=== PATIENT | female | born 1970 | race African-American/Black ===

== ENCOUNTER 2016-11-07 05:59 | Emergency (ER) | payer OTHER ==
[~2016-11-07] VITALS: Ht 175.3 cm; Wt 155.6 kg
[~2016-11-07 05:59] MED LIST: ACET500T33 PO; DEXL60CA2 PO; HYDR-2762 PO; L.AC1CAP6 PO; OMEP40CA5 PO; TRAM50TA PO
[2016-11-07 06:16] VITALS: BP 172/103
--- NOTE | 2016-11-07 06:18 | PHYS DOC ---
Past Medical History Past Medical History: GERD, Hypertension Past Surgical History: Cholecystectomy Additional Past Surgical Histo: D&C, cervical ablation Alcohol Use: None Drug Use: None Adult General Chief Complaint Chief Complaint: INSECT BITE HPI HPI Patient is a 46 year old female who presents with left lower extremity itchy rash that has become slightly painful. Has 3 areas on left lower leg; started small and have grown. States she mowed recently prior to this developing. She is concerned it is infection. She denies injury or other known exposure. No f/ c, numbness, tingling, weakness, GI complaints, myalgia. Review of Systems Review of Systems Constitutional: Denies fever or chills [] Eyes: Denies change in visual acuity, redness, or eye pain [] HENT: Denies nasal congestion or sore throat [] Respiratory: Denies cough or shortness of breath [] Cardiovascular: No additional information not addressed in HPI [] GI: Denies abdominal pain, nausea, vomiting, bloody stools or diarrhea [] : Denies dysuria or hematuria [] Musculoskeletal: Denies back pain or joint pain [] Integument: Has rash [] Neurologic: Denies headache, focal weakness or sensory changes [] Endocrine: Denies polyuria or polydipsia [] Allergies Allergies Allergies Coded Allergies Type Severity Reaction Last Updated Verified No Known Drug Allergies 05/05/15 No Physical Exam Physical Exam Constitutional: Well developed, well nourished, no acute distress, non-toxic appearance. [] HENT: Normocephalic, atraumatic, bilateral external ears normal, oropharynx moist, nose normal. [] Eyes: PERRLA, EOMI. [] Neck: Normal range of motion, supple. [] Cardiovascular:Heart rate regular rhythm [] Lungs & Thorax: Bilateral breath sounds clear to auscultation [] Abdomen: Bowel sounds normal, soft, no tenderness. [] Skin: Warm, dry. Has 3 areas of firm, raised, red 2cm lesions with tiny central honey crusted discharge; not warm, no crepitance or fluctuance, minimally tender. [] Back: Normal ROM. [] Extremities: No joint tenderness, ROM intact, no edema. [] Neurologic: Alert and oriented X 3, normal motor function, normal sensory function, no focal deficits noted. [] Psychologic: Affect normal, judgement normal, mood normal. [] Current Patient Data Vital Signs Vital Signs Date Time Temp Pulse Resp B/P (MAP) Pulse Ox O2 Delivery O2 Flow Rate FiO2 11/07/16 06:16 97.4 99 18 98 Room Air 97.4 Course & Med Decision Making Course & Med Decision Making Discussed this is likely a reaction from insect bite instead of infection. Discussed supportive care. Return precautions given. She understands and agrees with plan Dragon Disclaimer Dragon Disclaimer This electronic medical record was generated, in whole or in part, using a voice recognition dictation system. Departure Departure Impression: Primary Impression: Bug bite without infection Disposition: HOME, SELF-CARE Condition: STABLE Referrals: ADELINA CONNOLLY MD (PCP) Patient Instructions: Insect Bite, [id number] Additional Instructions: Follow-up with your primary care doctor. Return for any concerns. Problem Qualifiers Primary Impression: Bug bite without infection Encounter type: initial encounter Qualified Codes: W57.XXXA - Bitten or stung by nonvenomous insect and other nonvenomous arthropods, initial encounter Jordyn KNIGHT MD Nov 07, 2016 06:18
== END 2016-11-07 06:35 | disposition home or self-care (01) ==
LOC: ER 05:59
DX: W57.XXXA Bitten or stung by nonvenomous insect and other nonvenomous arthropods, initial encounter (principal); K21.9 Gastro-esophageal reflux disease without esophagitis; I10 Essential (primary) hypertension; Z90.49 Acquired absence of other specified parts of digestive tract; Y93.89 Activity, other specified; Y99.8 Other external cause status; Y92.89 Other specified places as the place of occurrence of the external cause
CPT/HCPCS: 99281

== ENCOUNTER 2017-07-28 19:47 | Emergency (ER) | payer OTHER ==
[2017-07-28] MEDS: HYDROcodone/APAP 10/325 1 TAB TABLET PO ×2 (20:15)
== END 2017-07-28 22:03 | disposition home or self-care (01) ==
LOC: ER 19:47
DX: S39.012A Strain of muscle, fascia and tendon of lower back, initial encounter (principal); K21.9 Gastro-esophageal reflux disease without esophagitis; I10 Essential (primary) hypertension; Z90.49 Acquired absence of other specified parts of digestive tract; X58.XXXA Exposure to other specified factors, initial encounter; Y93.89 Activity, other specified; Y92.89 Other specified places as the place of occurrence of the external cause; Y99.8 Other external cause status
CPT/HCPCS: 72131; 99284-25

== ENCOUNTER → 2017-08-25 | Outpatient (CLI) | payer OTHER | END | disposition home or self-care (01) | LOC: MAMMO 08:34 | DX: Z12.31 Encounter for screening mammogram for malignant neoplasm of breast (principal) | CPT/HCPCS: 77063; 77067 ==

== ENCOUNTER 2018-02-15 15:50 | Emergency (ER) | payer OTHER ==
[~2018-02-15] VITALS: Ht 175.3 cm; Wt 153.3 kg
[~2018-02-15 15:50] MED LIST changes: +CYCL5TAB PO; +HYDR-971 PO
[2018-02-15] MEDS ORDERED: KETOROLAC 30 MG/ML VIAL. IV ONE (16:15)
[2018-02-15] MEDS ORDERED: ONDANSETRON PF 4 MG/2 ML VIAL. IV ONE (16:15)
--- NOTE | 2018-02-15 16:15 | PHYS DOC ---
Past Medical History Past Medical History: GERD, Hypertension Past Surgical History: Cholecystectomy Additional Past Surgical Histo: D&C, cervical ablation Alcohol Use: None Drug Use: None Adult General Chief Complaint Chief Complaint: FLANK PAIN HPI HPI Patient is a 47 year old female who presents with right flank that wraps around to her right lower abdomen, urinary frequency, and foul urine odor x 1 day. Denies fever. Rates sharp pain 8/10. Review of Systems Review of Systems Constitutional: Denies fever or chills [] Eyes: Denies change in visual acuity, redness, or eye pain [] HENT: Denies nasal congestion or sore throat [] Respiratory: Denies cough or shortness of breath [] Cardiovascular: No additional information not addressed in HPI [] GI: Right lower abdominal pain, nausea. Denies vomiting, bloody stools or diarrhea [] : Dysuria. Denies hematuria. Foul smelling urine. [] Musculoskeletal: Denies back pain or joint pain [] Integument: Denies rash or skin lesions [] Neurologic: Denies headache, focal weakness or sensory changes [] All other systems were reviewed and found to be within normal limits, except as documented in this note. Current Medications Current Medications Current Medications Medications (Trade) Dose Ordered Sig/Efren Start Time Stop Time Status Last Admin Dose Admin Ketorolac Tromethamine (Toradol 30mg Vial) 30 mg 1X ONCE 02/15/18 16:15 02/15/18 16:18 DC 02/15/18 16:56 30 MG Ondansetron HCl (Zofran) 4 mg 1X ONCE 02/15/18 16:15 02/15/18 16:18 DC 02/15/18 16:54 4 MG Allergies Allergies Allergies Coded Allergies Type Severity Reaction Last Updated Verified No Known Drug Allergies 02/15/18 No Physical Exam Physical Exam Constitutional: Well developed, well nourished, no acute distress, non-toxic appearance. [] HENT: Normocephalic, atraumatic, bilateral external ears normal, oropharynx moist, no oral exudates, nose normal. [] Eyes: PERRLA, EOMI, conjunctiva normal, no discharge. [] Neck: Normal range of motion, no tenderness, supple, no stridor. [] Cardiovascular:Heart rate regular rhythm, no murmur [] Lungs & Thorax: Bilateral breath sounds clear to auscultation [] Abdomen: Bowel sounds normal, soft, right lower abdomen tenderness, no masses, no pulsatile masses. [] Skin: Warm, dry, no erythema, no rash. [] Back: Right lower tenderness, CVA tenderness. [] Extremities: No tenderness, no cyanosis, no clubbing, ROM intact, no edema. [] Neurologic: Alert and oriented X 3, normal motor function, normal sensory function, no focal deficits noted. [] Psychologic: Affect normal, judgement normal, mood normal. [] Current Patient Data Vital Signs Vital Signs Date Time Temp Pulse Resp B/P (MAP) Pulse Ox O2 Delivery O2 Flow Rate FiO2 02/15/18 15:55 98.1 93 20 168/69 (102) 99 Room Air 98.1 Lab Values Laboratory Tests Test 02/15/18 16:00 02/15/18 16:50 Urine Collection Type Unknown Urine Color Yellow Urine Clarity Cloudy Urine pH 6.5 Urine Specific [place] 1.015 Urine Protein 30 mg/dL (NEG-TRACE) Urine Glucose (UA) Negative mg/dL (NEG) Urine Ketones (Stick) Negative mg/dL (NEG) Urine Blood Large (NEG) Urine Nitrite Negative (NEG) Urine Bilirubin Negative (NEG) Urine Urobilinogen Dipstick 1.0 mg/dL (0.2 mg/dL) Urine Leukocyte Esterase Trace (NEG) Urine RBC Tntc /HPF (0-2) Urine WBC 1-4 /HPF (0-4) Urine Squamous Epithelial Cells Occ /LPF Urine Bacteria Few /HPF (0-FEW) Urine Mucus Slight /LPF White Blood Count 4.0 x10^3/uL (4.0-11.0) Red Blood Count 4.26 x10^6/uL (3.50-5.40) Hemoglobin 13.1 g/dL (12.0-15.5) Hematocrit 39.2 % (36.0-47.0) Mean Corpuscular Volume 92 fL (79-100) Mean Corpuscular Hemoglobin 31 pg (25-35) Mean Corpuscular Hemoglobin Concent 33 g/dL (31-37) Red Cell Distribution Width 14.5 % (11.5-14.5) Platelet Count 166 x10^3/uL (140-400) Neutrophils (%) (Auto) 62 % (31-73) Lymphocytes (%) (Auto) 30 % (24-48) Monocytes (%) (Auto) 6 % (0-9) Eosinophils (%) (Auto) 1 % (0-3) Basophils (%) (Auto) 0 % (0-3) Neutrophils # (Auto) 2.5 x10^3uL (1.8-7.7) Lymphocytes # (Auto) 1.2 x10^3/uL (1.0-4.8) Monocytes # (Auto) 0.3 x10^3/uL (0.0-1.1) Eosinophils # (Auto) 0.1 x10^3/uL (0.0-0.7) Basophils # (Auto) 0.0 x10^3/uL (0.0-0.2) Sodium Level 145 mmol/L (136-145) Potassium Level 4.3 mmol/L (3.5-5.1) Chloride Level 108 mmol/L (98-107) H Carbon Dioxide Level 28 mmol/L (21-32) Anion Gap 9 (6-14) Blood Urea Nitrogen 13 mg/dL (7-20) Creatinine 1.0 mg/dL (0.6-1.0) Estimated GFR (Cockcroft-Gault) 71.9 Glucose Level 99 mg/dL (70-99) Calcium Level 9.2 mg/dL (8.5-10.1) Laboratory Tests 02/15/18 16:50 Laboratory Tests 02/15/18 16:50 EKG EKG [] Radiology/Procedures Radiology/Procedures CT ABD/PELV[] Impressions: [facility] [address] [place] [address] IMAGING REPORT Signed PATIENT: TARAH SORENSON ACCOUNT: [id number] : 1970 LOCATION: ER AGE: 47 SEX: F EXAM STATUS: REG ER ORD. PHYSICIAN: VALERY BALLESTEROS APRN REASON: FLANK PAIN, HX KIDNEY STONE PROCEDURE: CT ABDOMEN PELVIS WO CONTRAST PQRS Compliance statement: One or more of the following individualized dose reduction techniques were utilized for this examination: 1. Automated exposure control. 2. Adjustment of the mA and/or kV according to patient size. 3. Use of iterative reconstruction technique. Indication:RT FLANK PAIN, HEMATURIA, PRIOR SENT TECHNIQUE: CT abdomen and pelvis without IV contrast with multiplanar reformats. COMPARISON: 07/17/2015 FINDINGS: Limited evaluation of solid abdominal and pelvic organs due to lack of IV contrast. Heart is normal in size. No pericardial or pleural effusion. Clear lung bases. Noncontrast appearance of the liver, spleen, adrenals within normal limits. Status post cholecystectomy. 2.0 x 1.8 cm fat density lesion is seen in the pancreatic head most likely a lipoma. Slight interval increase in the size of nonobstructing right renal stone measuring 1.4 cm, previously 1.1 cm. No hydronephrosis. 1 cm stone is seen at the right UVJ. No free pelvic fluid or ascites. No enlarged pelvic or mediastinal lymph nodes. Normal appendix. No bowel obstruction. Descending colon diverticulosis. Anteverted uterus. Urinary bladder is grossly within normal limits. No suspicious bony lesion. IMPRESSION: Limited evaluation of solid abdominal and pelvic organs due to lack of IV contrast. 1. Stone at the right UVJ measuring 1 cm without significant hydroureteronephrosis. Interval increase in size of nonobstructing right renal stone. Electronically signed by: Myles Kirk DO (02/15/2018 5:51 PM) [facility] DICTATED and SIGNED BY: MYLES KIRK DO DATE: 02/15/181746 Course & Med Decision Making Course & Med Decision Making Patient is a 47 year old female who presents with right flank that wraps around to her right lower abdomen, urinary frequency, and foul urine odor x 1 day. Denies fever. Rates sharp pain 8/10. Upon examination patient has right lower quadrant tenderness and right flank tenderness with CVA tenderness. Patient states that at times she gets nauseated but has not vomited. Patient is afebrile. Patient abdomen is soft and without masses. Patient's lungs are clear to auscultation. Patient skin is pink, warm and dry. Patient has no extremity edema, denies chest pain, shortness of air or diarrhea or vomiting. Patient is neurologically intact. Patient has no known drug allergies. Patient has a history of hypertension, cholelithiasis, kidney stone, UTI, GERD. CT abdomen shows 1. Stone at the right UVJ measuring 1 cm without significant hydroureteronephrosis. Interval increase in size of nonobstructing right renal stone. Patient will need to follow-up with urology. Patient will be put on Flomax and Bactrim. Patient to take ibuprofen and [place] for her pain. Patient is stable and in no distress. [] Dragon Disclaimer Dragon Disclaimer This electronic medical record was generated, in whole or in part, using a voice recognition dictation system. Departure Departure Impression: Primary Impression: Kidney stone Additional Impression: UTI (urinary tract infection) Disposition: 01 HOME, SELF-CARE Condition: STABLE Referrals: Moises ESPANA MD (PCP) DARRYL BOLAND MD Patient Instructions: Kidney Stones, Urinary Tract Infection Additional Instructions: Follow-up her primary care. Follow up with urology. Take medications as prescribed. Scripts Tamsulosin Hcl (FLOMAX) 0.4 Mg Cap.er.24h 0.4 MG PO DAILY for 10 Days, #10 TAB Prov: VALERY BALLESTEROS APRN 02/15/18 Hydrocodone/Apap 5-325 (NORCO 5-325 TABLET) 1 Each Tablet 1 TAB PO PRN Q6HRS PRN for PAIN, #8 TAB 0 Refills Prov: VALERY BALLESTEROS APRN 02/15/18 Nitrofurantoin Monohyd/M-Cryst (MACROBID 100 MG CAPSULE) 100 Mg Capsule 1 CAP PO BID, #14 CAP Prov: VALERY BALLESTEROS APRN 02/15/18 Problem Qualifiers Additional Impression: UTI (urinary tract infection) Urinary tract infection type: site unspecified Hematuria presence: with hematuria Qualified Codes: N39.0 - Urinary tract infection, site not specified ; R31.9 - Hematuria, unspecified VALERY BALLESTEROS APRN Feb 15, 2018 16:14
[2018-02-15 16:16] LABS: BILIRUBIN,URINE NEGATIVE (NEG); CLARITY,URINE CLOUDY; COLOR,URINE YELLOW; NITRITE,URINE NEGATIVE (NEG); PH,URINE 6.5; PROTEIN,URINE 30 mg/dL (NEG-TRACE)
[2018-02-15 16:32] LABS: BACTERIA,URINE FEW /HPF (0-FEW); RBC,URINE TNTC /HPF (0-2); SQUAMOUS EPITHELIAL CELL,UR OCC /LPF
[2018-02-15 16:55] LABS: BASO % 0 % (0-3); EOS # 0.1 x10^3/uL (0.0-0.7); EOS % 1 % (0-3); HEMATOCRIT 39.2 % (36.0-47.0); HEMOGLOBIN 13.1 g/dL (12.0-15.5); LYMPH # 1.2 x10^3/uL (1.0-4.8); LYMPH % 30 % (24-48); MEAN CORPUSCULAR HEMOGLOBIN 31 pg (25-35); MEAN CORPUSCULAR HGB CONC 33 g/dL (31-37); MEAN CORPUSCULAR VOLUME 92 fL (79-100); MONO # 0.3 x10^3/uL (0.0-1.1); MONO % 6 % (0-9); NEUT # 2.5 x10^3uL (1.8-7.7); NEUT % 62 % (31-73); PLATELET COUNT 166 x10^3/uL (140-400); RED BLOOD COUNT 4.26 x10^6/uL (3.50-5.40); RED CELL DISTRIBUTION WIDTH 14.5 % (11.5-14.5)
[2018-02-15 17:04] LABS: CALCIUM 9.2 mg/dL (8.5-10.1); GFR 71.9; POTASSIUM 4.3 mmol/L (3.5-5.1)
--- NOTE | 2018-02-15 17:55 | RAD ---
PQRS Compliance statement: One or more of the following individualized dose reduction techniques were utilized for this examination: 1. Automated exposure control. 2. Adjustment of the mA and/or kV according to patient size. 3. Use of iterative reconstruction technique. Indication:RT FLANK PAIN, HEMATURIA, PRIOR SENT TECHNIQUE: CT abdomen and pelvis without IV contrast with multiplanar reformats. COMPARISON: 07/17/2015 FINDINGS: Limited evaluation of solid abdominal and pelvic organs due to lack of IV contrast. Heart is normal in size. No pericardial or pleural effusion. Clear lung bases. Noncontrast appearance of the liver, spleen, adrenals within normal limits. Status post cholecystectomy. 2.0 x 1.8 cm fat density lesion is seen in the pancreatic head most likely a lipoma. Slight interval increase in the size of nonobstructing right renal stone measuring 1.4 cm, previously 1.1 cm. No hydronephrosis. 1 cm stone is seen at the right UVJ. No free pelvic fluid or ascites. No enlarged pelvic or mediastinal lymph nodes. Normal appendix. No bowel obstruction. Descending colon diverticulosis. Anteverted uterus. Urinary bladder is grossly within normal limits. No suspicious bony lesion. IMPRESSION: Limited evaluation of solid abdominal and pelvic organs due to lack of IV contrast. 1. Stone at the right UVJ measuring 1 cm without significant hydroureteronephrosis. Interval increase in size of nonobstructing right renal stone. Electronically signed by: Myles Kirk DO (02/15/2018 5:51 PM) [facility]
[2018-02-15] MEDS ORDERED: HYDR-971 PO (18:25)
[2018-02-15] MEDS ORDERED: TAMS0.4C97 PO (18:25)
[2018-02-15] MEDS ORDERED: NITR100C62 PO (18:25)
[2018-02-15 19:00] VITALS: BP 150/72
== END 2018-02-15 19:10 | disposition home or self-care (01) ==
LOC: ER 15:50
DX: N20.0 Calculus of kidney (principal); K21.9 Gastro-esophageal reflux disease without esophagitis; I10 Essential (primary) hypertension; Z90.49 Acquired absence of other specified parts of digestive tract
CPT/HCPCS: 36415; 74176; 80048; 81001; 85025; 87086; 96374; 96375; 99285; J1885; J2405